=== PATIENT | female | born 1950 | race Asian ===

== ENCOUNTER 2016-08-23 09:50 | Outpatient (CLI) | payer OTHER ==
[~2016-08-23 09:50] MED LIST: ASPIR-8181 MG PO; CALCIUM + D600 MG PO; CRANBERRY PILLS PO; LIPITOR10 MG PO; LOTENSIN HCT1 TAB PO; MULTIVITAMI1 PO; NEXIUM40 M1 PO; PROZAC PO
== END 2016-08-23 19:44 | disposition home or self-care (01) ==
LOC: LABW 09:50
DX: Z01.812 Encounter for preprocedural laboratory examination (principal)
CPT/HCPCS: 36415; 82565; 84520

== ENCOUNTER 2017-05-13 19:11 | Emergency (ER) | payer OTHER ==
[~2017-05-13] VITALS: Ht 167.6 cm; Wt 73.9 kg
[2017-05-13 19:51] LABS: PLATELET COUNT 233 K/uL (152-353)
[2017-05-13 20:01] LABS: POTASSIUM 3.9 mmol/L (3.6-5.2); SODIUM 139 mmol/L (136-145)
[2017-05-13 20:14] LABS: PARTIAL THROMBOPLASTIN TIME 25.2 SECONDS (24.5-33.6)
[2017-05-13 20:58] VITALS: BP 125/81; TEMP 98.4
== END 2017-05-13 21:04 | disposition home or self-care (01) ==
LOC: ED 19:11
DX: K21.9 Gastro-esophageal reflux disease without esophagitis (principal); E87.1 Hypo-osmolality and hyponatremia
CPT/HCPCS: 36415; 80053; 82550; 82553; 84484; 85027; 85610; 85730; 86318; 99283

== ENCOUNTER 2017-08-25 11:08 | Outpatient (CLI) | payer OTHER | END 2017-08-25 19:23 | disposition home or self-care (01) | LOC: LABW 11:08 | DX: D49.6 Neoplasm of unspecified behavior of brain (principal) | CPT/HCPCS: 36415; 82565; 84520 ==

== ENCOUNTER 2019-04-11 14:33 | Outpatient (CLI) | payer OTHER | END 2019-04-11 19:56 | disposition home or self-care (01) | LOC: LAB 14:33 | DX: R07.89 Other chest pain (principal) | CPT/HCPCS: 84484 ==

== ENCOUNTER 2019-08-05 12:01 | Outpatient (CLI) | payer OTHER | END 2019-08-05 19:27 | disposition home or self-care (01) | LOC: RAD 12:01 | DX: M54.17 Radiculopathy, lumbosacral region (principal) ==

== ENCOUNTER 2020-03-29 16:14 | Emergency (ER) | payer OTHER ==
[~2020-03-29] VITALS: Ht 167.6 cm; Wt 70.9 kg
[2020-03-29 16:20] VITALS: TEMP 98
[2020-03-29 17:57] VITALS: BP 117/74
== END 2020-03-29 17:57 | disposition home or self-care (01) ==
LOC: ED 16:14
DX: R07.89 Other chest pain (principal); V43.52XA Car driver injured in collision with other type car in traffic accident, initial encounter; Y92.89 Other specified places as the place of occurrence of the external cause
CPT/HCPCS: 93005; 99284

== ENCOUNTER 2020-10-28 10:48 | Outpatient (CLI) | payer OTHER | END 2020-10-28 20:11 | disposition home or self-care (01) | LOC: INF 10:48 | PROVIDERS: ATTEND Internal Medicine | DX: Z23 Encounter for immunization (principal) | CPT/HCPCS: 96372 ==

== ENCOUNTER 2020-10-29 07:38 | Outpatient (CLI) | payer OTHER | END 2020-10-29 22:10 | disposition home or self-care (01) | LOC: MRI 07:38 | PROVIDERS: ATTEND Nurse Practitioner Primary Care | DX: M47.896 Other spondylosis, lumbar region (principal) ==

== ENCOUNTER 2020-11-09 09:27 | Outpatient (CLI) | payer OTHER | END 2020-11-09 19:43 | disposition home or self-care (01) | LOC: MRI 09:27 | PROVIDERS: ATTEND Family Medicine | DX: M99.83 Other biomechanical lesions of lumbar region (principal) | CPT/HCPCS: 36415; 82565; 84520; A9576 ==

== ENCOUNTER 2020-11-19 11:01 | Outpatient (CLI) | payer OTHER | END 2020-11-19 19:26 | disposition home or self-care (01) | LOC: INF | PROVIDERS: ATTEND Internal Medicine | DX: Z23 Encounter for immunization (principal) | CPT/HCPCS: 96372 ==

== ENCOUNTER 2020-12-11 10:02 | Outpatient (CLI) | payer OTHER | END 2020-12-11 22:18 | disposition home or self-care (01) | LOC: NM 10:02 | PROVIDERS: ATTEND Internal Medicine Hematology & Oncology | DX: C85.89 Other specified types of non-Hodgkin lymphoma, extranodal and solid organ sites (principal) | CPT/HCPCS: A9561 ==

== ENCOUNTER 2021-08-05 15:28 | Outpatient (CLI) | payer OTHER ==
[2021-08-05 16:12] LABS: POTASSIUM 3.6 mmol/L (3.6-5.2)
[2021-08-05 16:23] LABS: PLATELET COUNT 202 K/uL (152-353)
== END 2021-08-05 19:16 | disposition home or self-care (01) ==
LOC: RESP 15:28
PROVIDERS: ATTEND Nurse Practitioner Family
DX: R07.89 Other chest pain (principal)
CPT/HCPCS: 36415; 80053; 82550; 82553; 84484; 85027; 85379; 86140; 93005

== ENCOUNTER 2021-12-28 13:21 | Outpatient (CLI) | payer OTHER | END 2021-12-28 18:54 | disposition home or self-care (01) | LOC: RAD 13:21 | PROVIDERS: ATTEND Nurse Practitioner Primary Care | DX: Z13.820 Encounter for screening for osteoporosis (principal); N95.8 Other specified menopausal and perimenopausal disorders ==

== ENCOUNTER 2022-01-13 07:50 | Outpatient (CLI) | payer OTHER | END 2022-01-13 19:50 | disposition home or self-care (01) | LOC: CT 07:50 | PROVIDERS: ATTEND Nurse Practitioner Primary Care | DX: E21.2 Other hyperparathyroidism (principal) | CPT/HCPCS: 36415; 82565; 84520; Q9963 ==

== ENCOUNTER 2022-05-04 09:55 | Outpatient (CLI) | payer OTHER | END 2022-05-04 19:31 | disposition home or self-care (01) | LOC: MAMMO 09:55 | PROVIDERS: ATTEND Nurse Practitioner Primary Care | DX: Z12.31 Encounter for screening mammogram for malignant neoplasm of breast (principal) ==

== ENCOUNTER 2023-01-18 13:55 | Outpatient (CLI) | payer OTHER | END 2023-01-18 20:11 | disposition home or self-care (01) | LOC: US 13:55 | PROVIDERS: ATTEND Nurse Practitioner Family | DX: I83.819 Varicose veins of unspecified lower extremity with pain (principal) ==

== ENCOUNTER 2023-01-25 08:08 | Outpatient (CLI) | payer OTHER | END 2023-01-25 18:59 | disposition home or self-care (01) | LOC: RAD 08:08 | PROVIDERS: ATTEND Physician Assistant | DX: M25.561 Pain in right knee (principal) ==

== ENCOUNTER 2023-01-25 15:40 | Outpatient (CLI) | payer OTHER | END 2023-01-25 19:04 | disposition home or self-care (01) | LOC: RAD 15:40 | PROVIDERS: ATTEND Physician Assistant | DX: M25.562 Pain in left knee (principal) ==

== ENCOUNTER 2023-09-05 11:06 | Outpatient (CLI) | payer OTHER ==
[2023-09-05 11:34] LABS: POTASSIUM 3.9 mmol/L (3.6-5.2)
== END 2023-09-05 19:07 | disposition home or self-care (01) ==
LOC: LABW 11:06
PROVIDERS: ATTEND Nurse Practitioner Family
DX: R07.89 Other chest pain (principal)
CPT/HCPCS: 80053; 82550; 83880; 84484